=== PATIENT | female | born 1990 | race Caucasian/White ===

== ENCOUNTER 2019-06-24 14:29 | Emergency (ER) | payer SELFPAY ==
[2019-06-24 14:56] VITALS: BP 128/76
--- NOTE | 2019-06-24 15:08 | UC ---
[facility] HPI - HPI Summary HPI Summary: 29-year-old female presents with one-week history of left lower dental pain for the past week. States over the last 2-3 days the pain has worsened and she has developed some swelling of the left lower jaw. She has been taking ibuprofen with some relief in the pain. Has multiple teeth in disrepair and has an appointment next month with her dentist to address these issues. States she may be . Denies fever, chills, trismus, or drainage. - History of Current Complaint Chief Complaint: UCDentalProblem Stated Complaint: DENTAL Time Seen by Provider: 06/24/19 14:53 Hx Obtained From: Patient Hx Last Menstrual Period: 06/10/19 Pain Intensity: 7 Dental: 1 - Abscess - Allergies/Home Medications Allergies/Adverse Reactions: Allergies Allergy/AdvReac Type Severity Reaction Status Date / Time morphine Allergy Vomiting Verified 06/24/19 14:57 tramadol Allergy See Comment Verified 06/24/19 14:57 PMH/Surg Hx/FS Hx/Imm Hx Previously Healthy: Yes - Denies significant PMH - Surgical History Surgical History: Yes Surgery Procedure, Year, and Place: gallbladder removal - Family History Known Family History: Positive: Non-Contributory - Social History Lives: With Family Alcohol Use: None Substance Use Type: None Smoking Status (MU): Never Smoked Tobacco Review of Systems All Other Systems Reviewed And Are Negative: Yes Constitutional: Negative: Fever, Chills Eyes: Positive: Negative ENT: Positive: Dental Pain - See HPI Respiratory: Positive: Negative Cardiovascular: Positive: Negative Gastrointestinal: Positive: Negative Genitourinary: Positive: Negative Musculoskeletal: Positive: Negative Neurological: Positive: Negative Is Patient Immunocompromised?: No Physical Exam - Summary Physical Exam Summary: GENERAL APPEARANCE: Well developed, well nourished, alert and cooperative, and appears to be in no acute distress. HEAD: Atraumatic. Normocephalic. Mild left mandibular facial swelling. EYES: Conjunctiva clear. No drainage. EARS: External auditory canals and tympanic membranes clear, hearing grossly intact. NOSE: No nasal discharge. MOUTH/THROAT: Pharynx normal. No tonsilar inflammation, swelling, exudate, or lesions. Uvula midline. Overall poor dentition. Tender area of gingival erythema and induration without fluctuance or drainage at the base of the 1st left lower molar. No trismus. NECK: Neck supple, non-tender without lymphadenopathy. CARDIAC: Normal S1 and S2. No S3, S4 or murmurs. Rhythm is regular. There is no peripheral edema, cyanosis or pallor. Extremities are warm and well perfused. Capillary refill is less than 2 seconds. Peripheral pulses intact. LUNGS: Clear to auscultation without rales, rhonchi, wheezing or diminished breath sounds. ABDOMEN: Positive bowel sounds. Soft, nondistended, nontender. No guarding or rebound. No masses or hepatosplenomegally. MUSKULOSKELETAL: ROM intact to all extremities. No joint erythema or tenderness. Normal muscular development. Normal gait. SKIN: Skin normal color, texture and turgor with no lesions or eruptions. Triage Information Reviewed: Yes Vital Signs: Initial Vital Signs Temp 97.7 F 06/24/19 14:51 Pulse 83 06/24/19 14:51 Resp 16 06/24/19 14:51 BP 128/76 06/24/19 14:51 Pulse Ox 100 06/24/19 14:51 Vital Signs Reviewed: Yes Dental Complaint Course/Dx - Course Course Of Treatment: 29-year-old female presents with one-week history of left lower dental pain for the past week. States over the last 2-3 days the pain has worsened and she has developed some swelling of the left lower jaw. She has been taking ibuprofen with some relief in the pain. Has multiple teeth in disrepair and has an appointment next month with her dentist to address these issues. States she may be . Denies fever, chills, trismus, or drainage. Afebrile. Vital signs stable. Patient had mild left mandibular swelling, a tender area of gingival erythema and induration without fluctuance or drainage at the base of the 1st left lower molar consistent with a dental abscess, no trismus, and otherwise unremarkable exam. [id number] urine was negative. Results reviewed with the patient. She states that she has been placed on amoxicillin in the past for previous dental abscesses and has not had good response therefore we'll place her on clindamycin 300 mg 3 times a day 10 days. I will also provide her with a prescription for ibuprofen 600 mg every 8 hours as needed for pain. She is to contact her dentist to see if she can get in for an earlier appointment. Anticipatory guidance and warning symptoms were reviewed the patient. Verbalizes understanding and agrees with plan of care. - Differential Dx/Diagnosis Differential Diagnosis/Dx: Dental Abscess, Dental Caries, Odontogenic Pain, Peridontic Disease Provider Diagnosis: Dental abscess Discharge ED - Sign-Out/Discharge Documenting (check all that apply): Patient Departure All imaging exams completed and their final reports reviewed: No Studies - Discharge Plan Condition: Stable Disposition: HOME Prescriptions: Clindamycin HCl 300 mg PO TID 10 Days #30 capsule Ibuprofen 600 mg PO Q8HR PRN #30 tablet PRN Reason: Pain - Moderate Patient Education Materials: Dental Abscess (ED) Referrals: No Primary Care Phys,NOPCP [Primary Care Provider] - Additional Instructions: Start clindamycin 300 mg 1 capsule three times a day for 10 days. Be sure to complete the entire course even if feeling better. Take ibuprofen 600 mg 1 tab every 8 hours as needed for pain. Be sure to rinse your mouth out with a warm salt water solution after every time you eat to remove any debris. Make an appointment with your dentist at next available appointment. Seek immediate medical attention in the emergency room if you develop fever greater than 100.5 F, you are unable to open of close your mouth, are unable to swallow, have difficulty breathing, or any worsening of symptoms. - Billing Disposition and Condition Condition: STABLE Disposition: Home
== END 2019-06-24 15:29 | disposition home or self-care (01) ==
LOC: EDBD → UCCORT 14:29
DX: K04.7 Periapical abscess without sinus (principal); Z88.5 Allergy status to narcotic agent
CPT/HCPCS: 84702; 99202; G0463